=== PATIENT | female | born 1970 | race Caucasian/White ===

== ENCOUNTER 2016-09-18 23:18 | Inpatient (IN) ==
[2016-09-18] MEDS ORDERED: *HR* Ticagrelor 90 MG TABLET PO ONE (23:21)
[2016-09-18] MEDS ORDERED: Nitroglycerin 0.4 MG TAB.SUBL SL PRN (23:21)
--- NOTE | 2016-09-18 23:23 | Emergency Department Note ---
Disposition Clinical Impression: STEMI (ST elevation myocardial infarction) Qualifiers: Involved coronary artery: other inferior wall coronary artery Qualified Code(s) : I21.19 - ST elevation (STEMI) myocardial infarction involving other coronary artery of inferior wall Disposition: Admitted As Inpatient Condition: Serious Time of Disposition: 23:48 (Taking patient to woods laborer, accpted by Dr. Jones) Chest Pain HPI - General Chief Complaint: ED Chest Pain Stated Complaint: chest pain Time Seen by Provider: 09/18/16 23:18 Source: patient, EMS Mode of arrival: EMS Vital Signs Reviewed: Yes Nursing Notes Reviewed: Yes - History of Present Illness HPI Narrative: Patient is a 46-year-old female with past medical history of anxiety, GERD, hypertension, hyperlipidemia, asthma, smoking history. She presents today via EMS due to chest pain. She states that the pain is located in the center chest , descried as a radiates down her left arm and is associated with left arm tingling. She says that the pain began about an hour prior to presentation and woke her up about sleep from a nap. She denies any previous hernia History, denies previous NE, previous stents. She denies any fevers, abdominal pain. She admits to associated N/V, shortness of breath, sweating. Currently rates the pain a 9 out of 10 and states that it was "20/10 on presentation. She did not take any aspirin or nitroglycerin at home. She was given aspirin 325 mg by EMS squad. - Related Data Home Medications Medication Instructions Recorded Confirmed Albuterol Neb [Proventil Neb] 2.5 mg IH Q4HR PRN 09/16/15 06/19/16 Albuterol Sulfate [Albuterol 2 puff IH Q4HR PRN 09/16/15 06/19/16 Inhaler] Hydrochlorothiazide 25 mg PO DAILY 09/16/15 06/19/16 Lisinopril [Zestril] 20 mg PO DAILY 09/16/15 06/19/16 Esomeprazole Magnesium [Nexium] 20 mg PO BID 06/19/16 06/19/16 FLUoxetine HCl [PROzac] 20 mg PO DAILY 06/19/16 06/19/16 Guaifenesin/Dm/Pseudoephedrine 1 tab PO TID 06/19/16 06/19/16 [Capmist Dm Tablet] LORazepam [Ativan] 1 mg PO TID PRN 06/19/16 06/19/16 Metoprolol [Lopressor] 25 mg PO BID 06/19/16 06/19/16 Nicotine Patch [Nicoderm] 14 mg TD DAILY 06/19/16 06/19/16 Oxybutynin Chloride [Ditropan Xl] 5 mg PO DAILY 06/19/16 06/19/16 Pravastatin Sodium [Pravachol] 20 mg PO DAILY 06/19/16 06/19/16 Tramadol HCl [Ultram] 50 mg PO QID PRN 06/19/16 06/19/16 Trazodone HCl 100 mg PO DAILY 06/19/16 06/19/16 Allergies Allergy/AdvReac Type Severity Reaction Status Date / Time Penicillins Allergy Hives Verified 03/14/15 22:08 acetaminophen [From Vicodin] AdvReac Nausea Verified 06/19/16 12:03 hydrocodone [From Vicodin] AdvReac Nausea Verified 06/19/16 12:03 Constitutional: Denies: fever Cardiovascular: Reports: chest pain, dyspnea on exertion Respiratory: Reports: dyspnea. Denies: cough, wheezes Gastrointestinal: Reports: nausea, vomiting. Denies: abdominal pain, diarrhea, constipation Genitourinary: Denies: urgency, dysuria, frequency Musculoskeletal: Denies: back pain, neck pain Integumentary: Denies: rash, abrasion Neurological: Denies: headache, weakness Psychiatric: Denies: anxiety, depression Endocrine: Denies: fatigue, heat or cold intolerance Hematological/Lymphatic: Denies: easy bleeding Chest Pain PMH - Past Medical History Medical history: Reports: arthritis, asthma, GERD, hyperlipidemia, hypertension , migraine Surgical history: Reports: , cholecystectomy, orthopedic, other, other Psychiatric history: Reports: anxiety AIRCRAFT TIME CLERK history: Reports: no AIRCRAFT TIME CLERK history - Social History Smoking Status: Current every day smoker Alcohol use: Reports: none Drug use: Reports: none Physical Exam - General Limitations: no limitations General appearance: alert, anxious, in distress - Head Head exam: atraumatic, normocephalic, normal inspection - Eye Eye exam: Present: normal appearance, PERRL, EOMI - ENT ENT exam: normal exam, normal oropharynx, mucous membranes moist - Chest Chest inspection: Present: normal inspection, symmetric chest wall rise. Absent : tenderness - Respiratory Respiratory exam: Present: normal lung sounds bilaterally. Absent: respiratory distress, wheezes - Cardiovascular Cardiovascular exam: Present: regular rate, normal rhythm, normal heart sounds - Abdominal Exam Abdominal exam: Present: soft, Non-Tender. Absent: tenderness, distention, guarding, rebound, rigidity - Extremities Exam Extremities exam: Present: normal inspection, full ROM. Absent: tenderness, pedal edema - Back Exam Back exam: Present: normal inspection, full ROM. Absent: tenderness - Neurological Exam Neurological exam: Present: alert, oriented X3, CN II-XII intact. Absent: motor sensory deficit - Psychiatric Psychiatric exam: Present: normal affect, normal mood - Skin Skin exam: Present: warm, dry, intact, normal color Course Course Narrative: Patient was mildly hypertensive on presentation. Oxygen saturation on a percent. Heart rate in 90s. An EKG was transmitted at 23:08. STEMI alert was called at 2310 prior to patient's arrival due to concerning ST elevation in leads 2, 3, aVF and reciprocal changes in V1, V2. I talked with Dr. Jones and she recommended heparin, brilinta 180 and then will take to woods laborer. Upon arrival, the patient was distressed, and pain, flushed and sweating, complaining of not out of 10 cm chest pain. She was given aspirin 325 mg by EMS. Similar Heatherly then activated, STEMI labs, chest x-ray, EKG ordered. Patient was not given nitroglycerine due to concern of inferior NE. She was given morphine for pain control. Repeat EKG at 23:28 on 09/18/[address] elevation in leads 2, 3, aVF and reciprocal changes in leads V1, V2, V3. Patient will be taken to cathet lab. Heparin and Brilinta was started. 23:59 Trop 0.18. Patient going to woods laborer now. Vital Signs Temperature 98.8 F 09/18/16 23:21 Pulse Rate 96 09/18/16 23:21 Respiratory Rate 22 09/18/16 23:21 Blood Pressure 162/95 09/18/16 23:21 O2 Sat by Pulse Oximetry 100 09/18/16 23:21 Temperature 98.8 F 09/18/16 23:21 Pulse Rate 92 09/18/16 23:50 Respiratory Rate 19 09/19/16 00:00 Blood Pressure 163/107 09/19/16 00:00 O2 Sat by Pulse Oximetry 100 09/18/16 23:50 Oxygen Delivery Oxygen Delivery Nasal Cannula Chest Pain - MDM Narrative Medical decision making narrative: Patient was mildly hypertensive on presentation. Oxygen saturation on a percent. Heart rate in 90s. An EKG was transmitted at 23:08. STEMI alert was called at 2310 prior to patient's arrival due to concerning ST elevation in leads 2, 3, aVF and reciprocal changes in V1, V2. I talked with Dr. Jones and she recommended heparin, brilinta 180 and then will take to woods laborer. Upon arrival, the patient was distressed, and pain, flushed and sweating, complaining of not out of 10 cm chest pain. She was given aspirin 325 mg by EMS. Similar Heatherly then activated, STEMI labs, chest x-ray, EKG ordered. Patient was not given nitroglycerine due to concern of inferior NE. She was given morphine for pain control. Repeat EKG at 23:28 on 09/18/[address] elevation in leads 2, 3, aVF and reciprocal changes in leads V1, V2, V3. Patient will be taken to cathet lab. Heparin and Brilinta was started. 23:59 Trop 0.18. Patient going to woods laborer now. - Medical Records Medical records reviewed: Yes I reviewed the patient's medical records. - Lab Data Lab results reviewed: Yes I reviewed the patient's lab results. Result diagrams: 09/18/16 23:26 09/18/16 23:26 Lab Results 09/18/16 09/18/16 09/18/16 Range/Units 23:26 23:26 23:26 WBC 11.9 H (4.3-11.1) K/mcL RBC 5.20 H (3.82-4.97) M/mcL Hgb 16.7 H (11.5-15.4) g/dL Hct 47.7 H (35.3-44.9) % MCV 91.7 (83.0-100.0) fL MCH 32.1 (28.0-33.3) pg MCHC 35.0 (31.6-35.5) g/dL RDW 12.1 (11.5-14.5) % Plt Count 383 (140-400) K/mcL MPV 9.6 (9.4-12.4) fL Immature Gran % 0.8 (0-4) % Seg Neutrophils % 75.7 % Lymphocytes % 14.8 % Monocytes % 6.6 % Eosinophils % 1.7 % Basophils % 0.4 % Neutrophils # 9.0 H (1.6-8.9) K/mcL Lymphocytes # 1.8 (0.6-4.6) K/mcL Monocytes # 0.8 (0.0-1.3) K/mcL Eosinophils # 0.2 (0.0-0.6) K/mcL Basophils # 0.1 (0.0-0.2) K/mcL Nucleated RBCs/100 WBC 0.2 H (0) /100 WBC PT 13.1 H (9.4-12.1) Seconds INR 1.2 APTT 32.2 (26.0-36.0) Seconds Sodium 139 (136-145) mEq/L Potassium 3.3 L (3.5-4.5) mEq/L Chloride 105 (98-109) mEq/L Carbon Dioxide 22 (19-29) mEq/L BUN 12 (7-20) mg/dL Creatinine 0.85 (0.57-1.11) mg/dL Est GFR ( Amer) > 60 (> 60) Est GFR (Non-Af Amer) > 60 (> 60) BUN/Creatinine Ratio 14 (6-26) Glucose 125 H (70-99) mg/dL Calculated Osmolality 289 (280-300) Calcium 9.3 (8.6-10.8) mg/dL Magnesium 2.0 (1.6-2.6) mg/dL Troponin I (0-0.03) ng/mL 09/18/16 Range/Units 23:26 WBC (4.3-11.1) K/mcL RBC (3.82-4.97) M/mcL Hgb (11.5-15.4) g/dL Hct (35.3-44.9) % MCV (83.0-100.0) fL MCH (28.0-33.3) pg MCHC (31.6-35.5) g/dL RDW (11.5-14.5) % Plt Count (140-400) K/mcL MPV (9.4-12.4) fL Immature Gran % (0-4) % Seg Neutrophils % % Lymphocytes % % Monocytes % % Eosinophils % % Basophils % % Neutrophils # (1.6-8.9) K/mcL Lymphocytes # (0.6-4.6) K/mcL Monocytes # (0.0-1.3) K/mcL Eosinophils # (0.0-0.6) K/mcL Basophils # (0.0-0.2) K/mcL Nucleated RBCs/100 WBC (0) /100 WBC PT (9.4-12.1) Seconds INR APTT (26.0-36.0) Seconds Sodium (136-145) mEq/L Potassium (3.5-4.5) mEq/L Chloride (98-109) mEq/L Carbon Dioxide (19-29) mEq/L BUN (7-20) mg/dL Creatinine (0.57-1.11) mg/dL Est GFR ( Amer) (> 60) Est GFR (Non-Af Amer) (> 60) BUN/Creatinine Ratio (6-26) Glucose (70-99) mg/dL Calculated Osmolality (280-300) Calcium (8.6-10.8) mg/dL Magnesium (1.6-2.6) mg/dL Troponin I 0.18 H* (0-0.03) ng/mL - Radiology Data Radiology results reviewed: Yes I reviewed the patient's radiology results. Chest X-Ray 09/18/16 23:21 IMPRESSION: Mild perihilar opacities centrally may represent vascular congestion. A viral infection or underlying asthma cannot be excluded. D/ / Darnell Ramos MD / Darnell Ramos MD Interpreting Provider: Darnell Ramos MD - EKG Data EKG attestation: Yes I reviewed and interpreted this EKG. EKG results narrative: 09/18/2016 at 23:28. Rate 98. ME interval 149. QRS 92. QTC 412. Normal axis. ST elevation in leads 2, 3, aVF. Reciprocal changes in V1, V2, V3. Heart Score - Score History: Highly Suspicious EKG: Significant ST-Depression Age: Less than 45 Risk Factors: 1-2 risk factors Troponin: Greater than 3x normal limit HEART Score Total: 7 Critical Care Time Critical Care Time: Yes Total Critical Care Time: 35 Attestation: Critical care performed: Time is exclusive of separately billable procedures. Time includes: direct patient care, patient reassessment, coordination of patient care, interpretation of data (laboratory data, radiology data, and respiratory data), review of patient's medical records, medical consultation and documentation of patient care. Procedures included in critical care time: Procedures excluded from critical care time: S.Tobi - Mohan.Tobi Situation: Demographics, MOA Background: Presenting Complaint, Relevant PMH, Meds, & Allergies Assessment: Vital Signs, Course and respsone to treatment, Exam Concerns, Patient/Family Expectation, Pertinant Lab Results, Outstanding Labs Recommendation: Barrier(s) to disposition, Recommendation based on pending studies, treatments, or consults Margareth Report Given to: Dr. Robert Zuluaga Repor Time: 23:47 Attestation Statement - Attestation Attestation: I, Fermin Hennessy MD, personally performed a history and physical exam of the patient and discussed their management with the resident. I reviewed the resident's note and agree with the documented findings, medical decision making , and plan of care. 46-year-old female presents to the emergency department by ambulance with a complaint of awakening from sleep with severe substernal chest pain approximately one hour prior to arrival. The pain radiates to the left arm. She complains of some shortness of breath associated with the pain. Also some nausea and vomiting and mild diaphoresis. No prior history of any heart problems. She is a smoker and has a history of hypertension. 12-lead EKG transmitted her EMS prior to arrival showed acute inferior STEMI with significant ST elevation in leads 2, 3 and aVF. A STEMI alert was called prior to patient's arrival in the emergency department. Repeat EKG here in the emergency department confirms acute inferior STEMI. Examination patient is a well-developed well-nourished female in no acute distress. She is very anxious. She is alert and oriented 3. There is no cyanosis or diaphoresis. Chest is nontender to palpation. Breath sounds are clear and equal bilaterally. Heart regular rate and rhythm. Abdomen is soft and nontender with normal bowel sounds. No pedal edema. No gross focal neurological deficits. Dr. Martell discussed with the income tax auditor, Dr. Jones. Patient taken directly from the emergency department to the cardiac Head Mva Reactor Operator for interventional catheterization.
[2016-09-18] MEDS ORDERED: *HR* Heparin 5,000 UNIT/ML VIAL IVP PRN ×2 (23:24)
[2016-09-18] MEDS ORDERED: *HR* Heparin 5,000 UNIT/ML VIAL IVP ONE (23:24)
[2016-09-18] MEDS ORDERED: Heparin 25,000 UNIT/500 ML D5W 25,000 UNIT/500 ML MLS IVC SCH (23:30)
[2016-09-18 23:35] LABS: Basophils # 0.1 K/mcL (0.0-0.2); Basophils % 0.4 %; Eosinophils # 0.2 K/mcL (0.0-0.6); Eosinophils % 1.7 %; Hematocrit 47.7 % (35.3-44.9); Immature Granulocytes % 0.8 % (0-4); Lymphocytes # 1.8 K/mcL (0.6-4.6); Lymphocytes % 14.8 %; Mean Corpuscular Hemoglobin 32.1 pg (28.0-33.3); Mean Corpuscular Volume 91.7 fL (83.0-100.0); Mean Platelet Volume 9.6 fL (9.4-12.4); Monocytes # 0.8 K/mcL (0.0-1.3); Monocytes % 6.6 %; Nucleated Red Blood Cells 0.2 /100 WBC (0); Red Cell Distribution Width 12.1 % (11.5-14.5); Segmented Neutrophils % 75.7 %
[2016-09-18] MEDS ORDERED: *HR* Morphine 2 MG/ML SYRINGE IVP ONE (23:39)
[2016-09-18 23:40] LABS: INR 1.2
[2016-09-18 23:43] LABS: Activated Partial Thrombo Time 32.2 Seconds (26.0-36.0)
[2016-09-18 23:44] LABS: Hemoglobin 16.7 g/dL (11.5-15.4); Prothrombin Time 13.1 Seconds (9.4-12.1)
[2016-09-18 23:45] LABS: Platelet Count 383 K/mcL (140-400)
[2016-09-18] MEDS ORDERED: Heparin 1,000 UNITS/500 mL NS 500 ML ONE (23:46)
[2016-09-18] MEDS ORDERED: *HR* Midazolam HCl 2 MG/2 ML VIAL ONE (23:46)
[2016-09-18] MEDS ORDERED: 0.9 % Sodium Chloride 2,000 ML ONE (23:46)
[2016-09-18] MEDS ORDERED: *HR* FentaNYL (PF) 100 MCG/2 ML VIAL ONE (23:46)
[2016-09-18] MEDS ORDERED: *HR* Heparin 10,000 UNIT/10 ML VIAL ONE (23:47)
[2016-09-18] MEDS ORDERED: Nitroglycerin 1,000 MCG/10 ML VIAL IV ONE (23:47)
[2016-09-18 23:48] LABS: BUN/Creatinine Ratio 14 (6-26); Blood Urea Nitrogen 12 mg/dL (7-20); Calcium 9.3 mg/dL (8.6-10.8); Carbon Dioxide 22 mEq/L (19-29); Chloride 105 mEq/L (98-109); Glucose 125 mg/dL (70-99); Osmolality,Calculated 289 (280-300); Potassium 3.3 mEq/L (3.5-4.5); Sodium 139 mEq/L (136-145); eGFR For African Americans > 60 (> 60); eGFR For Non-African Americans > 60 (> 60)
[2016-09-19] MEDS ORDERED: Ondansetron 4 MG/2 ML VIAL ONE (00:31)
[2016-09-19] MEDS ORDERED: Nitroglycerin 0.4 MG TAB.SUBL SL PRN ×2 (00:45→14:39)
[2016-09-19] MEDS ORDERED: Ondansetron 4 MG/2 ML VIAL IVP PRN ×2 (00:45→14:39)
[2016-09-19] MEDS ORDERED: *HR* Morphine 2 MG/ML SYRINGE IVP PRN ×2 (00:45→14:39)
--- NOTE | 2016-09-19 00:55 | Cardiology History & Physical ---
Date of Encounter: 09/18/16 Time of Encounter: 23:55 Assessment and Plan (1) STEMI (ST elevation myocardial infarction) Current Visit: Yes Status: Acute Pt currently experiencing an acute inferior/posterior STEMI. Discussed with patient emergent LHC and probable PCI. Pt agreeable to proceed. Further recommendations pending cath. The assessment and plan as outlined above was discussed with the patient and/or family members who expressed understanding and agreement. All questions were answered. Qualifiers: Involved coronary artery: other inferior wall coronary artery Qualified Code(s): I21.19 - ST elevation (STEMI) myocardial infarction involving other coronary artery of inferior wall (2) Hypertension Current Visit: Yes Status: Chronic Qualifiers: Hypertension type: essential hypertension Qualified Code(s): I10 - Essential (primary) hypertension (3) Hyperlipidemia Current Visit: Yes Status: Chronic Qualifiers: Hyperlipidemia type: other hyperlipidemia Qualified Code(s): E78.4 - Other hyperlipidemia (4) Tobacco use Current Visit: Yes Status: Chronic History of Present Illness Chief complaint: chest pain HPI: Ms. Real is a 46 year old female with HTN, hyperlipidemia presents to [facility] ED with chest pain. 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 Radiated down L arm. Associated with nausea, SOB, diaphoresis. Contacted EMS. EKG by EMS demonstrated acute inferior/posterior STEMI. Brought to [facility] ED for further tx. Pt denies prior symptoms. Denies prior cardiac history, cardiac testing. Past Med Surg Social Fam HX - Past Medical History Source: patient Medical history: arthritis, asthma, GERD, hyperlipidemia, hypertension, migraine Psychiatric history: anxiety - Past Surgical History Surgical History: , cholecystectomy, orthopedic, other, other - Social History Smoking Status: Current every day smoker Smokeless Tobacco Status: No (1 PPD) Alcohol use: none Drug use: none - Family History Mother Living Status: Still Living Cause of : unspecified heart disease Medications and Allergies Albuterol Neb [Proventil Neb] 2.5 mg IH Q4HR PRN 09/16/15 [History] Albuterol Sulfate [Albuterol Inhaler] 2 puff IH Q4HR PRN 09/16/15 [History] Hydrochlorothiazide 25 mg PO DAILY 09/16/15 [History] Lisinopril [Zestril] 20 mg PO DAILY 09/16/15 [History] Esomeprazole Magnesium [Nexium] 20 mg PO BID 06/19/16 [History] FLUoxetine HCl [PROzac] 20 mg PO DAILY 06/19/16 [History] Guaifenesin/Dm/Pseudoephedrine [Capmist Dm Tablet] 1 tab PO TID 06/19/16 [ History] LORazepam [Ativan] 1 mg PO TID PRN 06/19/16 [History] Metoprolol [Lopressor] 25 mg PO BID 06/19/16 [History] Nicotine Patch [Nicoderm] 14 mg TD DAILY 06/19/16 [History] Oxybutynin Chloride [Ditropan Xl] 5 mg PO DAILY 06/19/16 [History] Pravastatin Sodium [Pravachol] 20 mg PO DAILY 06/19/16 [History] Tramadol HCl [Ultram] 50 mg PO QID PRN 06/19/16 [History] Trazodone HCl 100 mg PO DAILY 06/19/16 [History] Allergies Penicillins Allergy (Verified 03/14/15 22:08) Hives acetaminophen [From Vicodin] Adverse Reaction (Verified 06/19/16 12:03) Nausea hydrocodone [From Vicodin] Adverse Reaction (Verified 06/19/16 12:03) Nausea ROS unobtainable: other (emergency) All Systems Review: A 10-system review of systems was performed and is negative for pertinent findings except as documented above in the HPI. - Cardiovascular Cardiovascular: as per HPI - Integumentary Integumentary: rash (states rash on face "from allergy to soap") Physical Examination Vital Signs, Last 4 Hours Resp BP 09/19/16 00:00 19 163/107 General: Other (moderate distress, appears uncomfortable) HEENT: Atraumatic, Normocephaly, Mucus Membranes Moist Neck: No JVD, Normal carotid pulses Cardiac: Reg Rate and Rhythm, Normal S1 and S2, No Murmur Lungs: Normal Breath Sounds, No Wheeze, Rales, Rhonchi Neuro: Alert and responsive, No focal deficits noted Abdomen: Soft, Non-Tender Skin: Other (facial rash) Musculoskeletal: No Chest Wall Tenderness Extremities: No Clubbing, No Cyanosis, No Edema, Normal Pulses Results 09/18/16 23:26 09/18/16 23:26 - VTE Reasons for not Prescribing Prophylaxis: Not indicated-Anticoagulated or INR therapeutic
--- NOTE | 2016-09-19 01:05 | Invasive Diagnostic Lab Proc ---
Name: Milly Real Date of Study: 09/19/2016 Date: 1970 Ht: 65.0in Medical Record#: [id number] Age: 46 Wt: 174.17lb Gender: Female BSA: 1.86 Order #: [id number] BMI: 29.02 Physicians Procedure Physician: Montserrat Jones MD, [facility] Referring MD: Referring MD: Staff Name Position Time In Sites, Rosy RT (R) Monitor 12:02 AM Erica Fuller RN Nursing Assistant 12:02 AM Karen Campa RT (R) Scrub 12:02 AM Indications Indication STEMI Procedures Performed Procedure PRQ CARD REVASC NC 1 VSL L HRT ARTERY/VENTRICLE ANGIO Pre-Procedure Checklist Informed consent is complete signed and on chart. H\\T\\P is on chart. ID band is on and ID verified with patient. Patient NPO for procedure The procedure was described for the patient and questions were answered. Blood Pressure: 90/80 ECG is on chart. Rhythm: NSR Plan of Care Patient will tolerate the procedure without complications. Adequate level of comfort will be maintained. Hemodynamics will remain stable Patient will recover from procedure without complications. Respiratory function will be maintained. Cardiac rhythm will remain stable. Patient temperature will be maintained. Patient and/or family have verbalized understanding of the procedure. Patient Education Intravenous Access Time IV Size Location DC'd Fluid/Drip Rate Units RN 18g 1 1/4" Patent On Arrival Rt Antecubital 0.9NaCl 25 ml/hr Erica Fuller RN 20g 1 1/4" Patent On Arrival Rt Arm Erica Fuller RN Allergies hydrocodone Penicillins Vital Signs Time BP (mmHg) HR (bpm) O2 Sat. RR (bpm) LOC 12:11 AM / % 5 = Fully awake and oriented or at pre-proc level 12:11 AM / % 4 = Oriented but drowsy 12:07 AM 90 / 80 76 100 % 12 12:10 AM 159 / 101 73 98 % 10 12:15 AM 152 / 85 93 95 % 18 12:20 AM 142 / 94 96 95 % 16 12:25 AM 130 / 74 95 93 % 19 12:31 AM 156 / 98 97 97 % 13 12:35 AM 151 / 89 99 96 % 17 12:26 AM / % 4 = Oriented but drowsy Procedural Medications Time Medication Dose Units Method Given By 12:04 AM Oxygen 2 L/min nasal cannula Erica Fuller RN 12:06 AM Versed 2 mg Intravenous Erica Fuller RN 12:06 AM Fentanyl 50 mcg Intravenous Erica Fuller RN 12:06 AM Lidocaine 20 ml Subcutaneous Montserrat Jones MD, [facility] 12:21 AM Nitroglycerin 200 mcg Intracoronary Montserrat Jones MD, FAC 12:32 AM Nitroglycerin 200 mcg Intracoronary Montserrat Jones MD, FAC 12:32 AM Zofran 4 mg Intravenous Erica Fuller RN 12:42 AM Reopro Bolus: 9.9 ml Intravenous Erica Fuller RN ASA Classification: CLASS II- Mild systemic disease (i.e. well-controlled diabetes, hypertension, asthma, cigarette smoking) Emergent Procedure: ASA score is assumed Cr Score Preprocedure Postprocedure Activity 2- Moves 4 extremities sustained head lift Activity 2- Moves 4 extremities sustained head lift Circulation 2- SBP +/= 20 points of pre-anesthetic level Circulation 2- SBP +/= 20 points of pre-anesthetic level Consciousness 2- Awake and alert oriented x 3 Consciousness 2- Awake and alert oriented x 3 O2 Saturation 2- Able to maintain O2 satruation of 92% on room air O2 Saturation 2- Able to maintain O2 satruation of 92% on room air Respiratory 2- Able to deep breathe and cough well Respiratory 2- Able to deep breathe and cough well Total Score 10 Total Score 10 Contrast Agent: Isovue Diagnostic Contrast: 140 ml Total Contrast: 140 ml Fluoro Dose: 1343 mGy Activated Clotting Time Time Seconds to Clot 12:16 AM 230 12:33 AM 400 12:36 AM 181 Procedure Log Time Note Enter By 12:02 AM Pt arrived to botany laboratory assistant 2 at 00:02 tsites 12:02 AM Rosy Hicks RT (R) Position: Monitor Time in: 00:02 tsites 12:02 AM Erica Fuller RN Position: Nursing Assistant Time in: 00:02 tsites 12:02 AM Karen Campa RT (R) Position: Scrub Time in: 00:02 tsites 12:03 AM Physician arrived 00:03 tsites 12:04 AM Time: 00:04 Oxygen on at 2 L/min per nasal cannula by Erica Fuller RN tsites 12:05 AM Vitals capture started with the following parameters, Patient=Adult, Interval=5 min, Initial Erccmeio=750 mmHg, Deflation Rate=5 mmHg, Cuff placed on Left Arm 12:06 AM Time: 00:06 Versed 2 mg Intravenous Given by Erica Fuller RN tsites 12:06 AM Time: 00:06 Fentanyl 50 mcg Intravenous Given by Erica Fuller RN tsites 12:07 AM HR=76 bpm, NIBP=90/80 mmhg, WdE3=965 %, Resp=12 B/min 12:09 AM NIBP STAT measurement started. 12:10 AM Patient charges- Angio tray pack, Navilyst 3mm J, Pulse Oximetry and ACIST tubing and transducer tsites 12:10 AM Case Delayed No tsites 12:10 AM HR=73 bpm, NCRN=880/101 mmhg, SpO2=98 %, Resp=10 B/min 12:10 AM Hair removed from procedure site in emergency department using clippers. Bilateral groin prepped with Chloraprep by Sites, Rosy RT (R), safety strap applied then patient was draped. Skin intact. tsites 12:10 AM Meet and greet completed tsites 12:10 AM Sign in performed according to hospital policy. tsites 12:10 AM Procedure start 00:10 tsites 12:11 AM Time: 00:11 Patient comfortable and pain free: Yes tsites 12:11 AM Time: 00:11LOC: 5 = Fully awake and oriented or at pre-proc level tsites 12:11 AM Clinical Presentation: STEMI or equivalent tsites 12:11 AM Time out performed according to hospital policy tsites 12:11 AM Time: 00:11 20 ml lidocaine to Subcutaneous Given by montserrat jones md tsites 12:11 AM Access obtained by percutaneous puncture. 6Fr 10cm Terumo [place] sheath placed in right Femoral artery. [id number] tsites 12:12 AM 5Fr FL 4 catheter inserted over the wire [facility] tsites 12:12 AM 0.035 145cm Navilyst 3mmJ wire [id number] tsites 12:12 AM Recorded Pressure: Ao, HR=84, Condition=Condition 1 (Aorta) Ao 85/-26/36 12:12 AM LCA angiography performed in multiple views. tsites 12:12 AM wire reinserted catheter removed tsites 12:12 AM Recorded ECG: HR=88 Condition=Condition 1 12:12 AM 6Fr JR 4 Runway guide catheter was used to cannulate the PCI vessel successfully. reused? No tsites 12:12 AM Inflation device was opened. tsites 12:13 AM act drawn tsites 12:14 AM RCA angiography performed in multiple views. tsites 12:14 AM Recorded Pressure: Ao, HR=86, Condition=Condition 1 (Aorta) Ao 120/74/94 12:15 AM HR=93 bpm, MNVU=429/85 mmhg, SpO2=95 %, Resp=18 B/min 12:16 AM At 00:16 the ACT was 230 seconds. tsites 12:19 AM PCI Status Emergency tsites 12:19 AM PCI Indication: Immediate PCI for STEMI tsites 12:19 AM PCI lesion in Mid RCA. Pre Stenosis: 99 Pre JUWAN Flow: 3 tsites 12:19 AM PCI lesion in Mid RCA. tsites 12:20 AM 3.0mm x 32mm Synergy drug-eluting stent across target lesion- successful Lot #[id number] tsites 12:20 AM Stent deployed @ 16 robby for 30 seconds tsites 12:20 AM .014 Prowater 182cm guide wire across target lesion- successful. reused? No tsites 12:20 AM HR=96 bpm, XFFH=570/94 mmhg, SpO2=95.0 %, Resp=16 B/min 12:21 AM Time: 00:21 Nitroglycerin 200 mcg Intracoronary Given by Montserrat Jones MD, [facility] tsites 12:24 AM Stent delivery system removed intact. tsites 12:24 AM 3.5 mm x 15mm NC Emerge balloon across target lesion- successful. reused? No tsites 12:25 AM HR=95 bpm, PCKI=605/74 mmhg, SpO2=93 %, Resp=19 B/min 12:26 AM Time: 00:11LOC: 4 = Oriented but drowsy tsites 12:26 AM Time: 00:11 Patient comfortable and pain free: Yes tsites 12:28 AM Balloon inflated @ 20 robby for 16 seconds tsites 12:29 AM Balloon inflated @ 20 robby for 15 seconds tsites 12:29 AM Balloon inflated @ 20 robby for 15 seconds tsites 12:30 AM Balloon inflated @ 20 robby for 10 seconds tsites 12:31 AM HR=97 bpm, WIOU=210/98 mmhg, SpO2=97.0 %, Resp=13 B/min 12:32 AM Right Coronary, Right Posterior Descending Arteries with Right Posterolateral and Acute Marginal branches with 99 % stenosis. If graft is supplying this area, 0 % stenosis tsites 12:32 AM Time: 00:32 Nitroglycerin 200 mcg Intracoronary Given by Montserrat Jones MD, [facility] tsites 12:32 AM Time: 00:32 Zofran 4 mg Intravenous Given by Erica Fuller RN tsites 12:32 AM ACT greater [id number] tsites 12:33 AM At 00:33 the ACT was 400 seconds. tsites 12:33 AM Guide wire removed intact. tsites 12:33 AM wire reinserted catheter removed tsites 12:34 AM act drawn tsites 12:35 AM Pressure channel 1 zeroed. 12:35 AM 5Fr Pigtail catheter inserted over the wire [facility] tsites 12:35 AM Catheter selectively placed in left ventricle tsites 12:35 AM Bolus angiogram of left Ventricle complete: 8 ml/sec for a total of 24 mls tsites 12:35 AM Recorded Pressure: LV, HR=93, Condition=Condition 1 (Left Ventricle) LV 107/20/22 12:35 AM Recorded Pressure: LV, Ao, HR=93, Condition=Condition 1 (Left Ventricle) LV 117/34/47, (Aorta) Ao 109/81/95 12:35 AM HR=99 bpm, MNUL=548/89 mmhg, SpO2=96.0 %, Resp=17 B/min 12:35 AM Catheter removed tsites 12:35 AM Wire removed tsites 12:36 AM Bolus angiogram of right Femoral complete: 2 ml/sec for a total of 4 mls tsites 12:36 AM At 00:36 the ACT was 181 seconds. tsites 12:41 AM Coronary Dominance: right tsites 12:41 AM Time: 00:26 Patient comfortable and pain free: Yes tsites 12:41 AM Time: 00:26LOC: 4 = Oriented but drowsy tsites 12:42 AM Time: 00:42 Reopro Bolus: 9.9 ml Intravenous Given by Erica Fuller RN Potts pump tsites 12:43 AM Procedure completed at 00:43 tsites 12:43 AM Sign out completed: Radiation Dose 1343 mGy Fluoro Time: 8.4 Isovue 370 - 500ml contrast 140 ml given by Montserrat Jones MD, [facility]. Complications: NoneCardiac Rehab Consult needed: YesConfirmed administered medications: Yes tsites 12:43 AM Isovue 370 - 500ml,1 Bottle(s) used. tsites 12:43 AM Sheath left in place to be pulled on floor/holding areaV+Pad tsites 12:43 AM Post ECG NSR tsites 12:43 AM Post Blood Pressure 150/94 tsites 12:44 AM 00:43 Post Pulses Bilateral DP \\T\\ PT 2+ tsites 12:44 AM Information taught Cardiac Cath and PCI tsites 12:44 AM Education needs Procedure, Plan of Care, and Responsibilities of Patient in Care tsites 12:44 AM Learning barriers :None tsites 12:44 AM Education Methods Verbal tsites 12:44 AM Education evaluation Able to repeat information tsites 12:44 AM Site status No bleeding/hematoma - Rt Groin as reported by Karen Campa RT (R) at 00:44 tsites 12:44 AM Plavix, Effient or Brilinta given Yes in the ER tsites 12:46 AM Lesion found in Proximal LAD. Pre Stenosis: 20 Pre JUWAN Flow: tsites 12:46 AM Proximal Left Anterior Descending Coronary Artery with 20% stenosis. If graft is supplying this territory, 0 % stenosis. tsites 12:46 AM Lesion found in Proximal Circumflex. Pre Stenosis: 20 Pre JUWAN Flow: tsites 12:46 AM Circumflex, Obtuse Marginal, Left Posterior Descending, and Left Posterolateral Coronary Arteries with 20 % stenosis. If graft is supplying this area, 0 % stenosis tsites 12:58 AM Report given to mali RN Pt taken to ICU Room #9. 00:57 tsites 12:58 AM Delay to floor No tsites 12:58 AM Patient out of room: 00:58 tsites 12:58 AM no family at this time except a minor daughter who remianed in the er tsites Complications Complication None Hemodynamics Pressures Site Systolic/A Wave Diastolic/V Wave Mean AO 85 -26 36 AO 120 74 94 LV 107 20 22 LV 117 34 47 AO 109 81 95 Post Procedure Information Blood Pressure: 150/94 mmHg Rhythm: NSR Post procedural instructions were given Closure Device Time Device Success/Fail 09/19/2016 12:45:00 AM Manual Compression Site Checks Time Location Status Staff Sheath In? Note 12:44 AM Rt Groin No bleeding/hematoma Karen Campa RT (R) Pulses Time Site Pre-Procedure Post-Procedure Note Bilateral DP \\T\\ PT 2+ 12:43:00 AM Bilateral DP \\T\\ PT 2+ Updated by Rosy Hicks RT (R) on 09/19/2016 12:59:15 AM Rosy Hicks RT electronically signed on 09/19/2016 1:01:02 AM with status of Final
--- NOTE | 2016-09-19 01:12 | Invasive Diagnostic Lab ---
Name: Milly Real Date of Study: 09/19/2016 Date: 1970 Ht: 165.0 cm /65.0 in Medical Record#: [id number] Age: 46 Wt: 79. kg / 174.17 lb Account/Order#: [id number] Gender: Female BSA: 1.86 Order #: [id number] Fluoro Dose: 1343 mGy BMI: 29.02 Procedure Physician: Montserrat Jnoes MD, [facility] Referring MD: Referring MD: Procedures Performed: PCI of Acute NH LEFT HEART CATH Indications: STEMI Impressions: There is severe one vessel coronary artery disease. The left ventricle is normal and has normal contractility EF 55% Patient had successful PTCA/Drug-Eluting Stent placement in the mid RCA. Recommendations: DAPT for one year minimum uninterrupted. Optimal medical therapy of patient's disease. Aggressive risk factor modification. Patient being referred for cardiac rehab. History/Risk Factors: gerd Hypertension Dyslipidemia Current/Recent Smoker Procedure Access obtained in the right Femoral artery by percutaneous puncture Patient had successful PTCA/Drug-Eluting Stent placement in the mid RCA. Complications: None Contrast: Isovue 140ml Closure Device: Manual Compression Hemodynamics: Pressures Site Systolic/ A Wave Diastolic/ V Wave End Diastolic/ Mean HR AO 85 -26 36 84 AO 120 74 94 86 LV 107 20 22 93 LV 117 34 47 89 AO 109 81 95 95 LV Ventriculography Ejection Method: LV Gram Ejection Fraction: 55% Wall Motion: CHANG Anterobasal Normal Anterolateral Normal Apical: Normal Inferoapical Moderate Hypokinesis Inferobasal Moderate Hypokinesis Coronary Dominance: right Lesion Findings/Interventions * Left Main Coronary Artery The LMCA is angiographically free of disease. * Left Anterior Descending There is a 20% stenosis in the Proximal LAD. * Circumflex There is a 20% stenosis in the Proximal Circumflex. * Right Coronary Artery There is a 32 mm long, 99% stenosis in the Mid RCA. The lesion has a JUWAN flow of 3 and has thrombus present. An intervention was performed on the Mid RCA with a final stenosis of 0%. There were no lesion complications. The final JUWAN flow was 3. Interventional Device(s) Vessel Segment Type Name Diameter (mm) Length (mm) Mid RCA Drug Eluting Stent Synergy 3 32 Mid RCA Balloon NC Emerge 3.5 15 Updated by Rosy Sites, RT (R) on 09/19/2016 1:01:07 AM Montserrat Jones MD, FACC electronically signed on 09/19/2016 1:06:46 AM with status of Final
[2016-09-19] MEDS ORDERED: *HR* Atropine Sulfate 1 MG/10 ML SYRINGE ONE (02:50)
[2016-09-19 03:08] LABS: Basophils # 0.1 K/mcL (0.0-0.2); Basophils % 0.5 %; Eosinophils # 0.1 K/mcL (0.0-0.6); Eosinophils % 1.2 %; Hematocrit 44.4 % (35.3-44.9); Hemoglobin 15.3 g/dL (11.5-15.4); Immature Granulocytes % 0.5 % (0-4); Immature Platelets 3.8 % (1.1-6.1); Lymphocytes # 2.2 K/mcL (0.6-4.6); Lymphocytes % 21.3 %; Mean Corpuscular HGB Conc 34.5 g/dL (31.6-35.5); Mean Corpuscular Hemoglobin 31.7 pg (28.0-33.3); Mean Corpuscular Volume 92.1 fL (83.0-100.0); Mean Platelet Volume 9.6 fL (9.4-12.4); Monocytes # 0.5 K/mcL (0.0-1.3); Monocytes % 4.6 %; Neutrophils # 7.4 K/mcL (1.6-8.9); Platelet Count 368 K/mcL (140-400); Red Blood Count 4.82 M/mcL (3.82-4.97); Segmented Neutrophils % 71.9 %
[2016-09-19 03:20] LABS: Hemoglobin A1C 5.7 %
[2016-09-19 03:22] LABS: BUN/Creatinine Ratio 13 (6-26); Blood Urea Nitrogen 9 mg/dL (7-20); Carbon Dioxide 21 mEq/L (19-29); Chloride 108 mEq/L (98-109); Chol/HDL Ratio 9.1 (0-4.9); Cholesterol 210 mg/dL (< 200); Glucose 100 mg/dL (70-99); HDL Cholesterol 23 mg/dL (40-59); LDL Cholesterol,Calculated 135 mg/dL (0-99); Osmolality,Calculated 285 (280-300); Potassium 3.6 mEq/L (3.5-4.5); Sodium 138 mEq/L (136-145); Triglycerides 258 mg/dL (< 150); eGFR For African Americans > 60 (> 60); eGFR For Non-African Americans > 60 (> 60)
[2016-09-19 03:43] LABS: Thyroid Stimulating Hormone 1.602 mcIU/mL (0.350-4.840)
--- NOTE | 2016-09-19 08:23 | Event Note ---
Date of Encounter: 09/19/16 Time of Encounter: 08:20 - Cardiology Event Note Selected Entries 09/19/16 06:00 09/19/16 07:50 Temperature 98.9 F Pulse Rate 83 Respiratory Rate 20 Blood Pressure 133/83 O2 Sat by Pulse Oximetry 97 Oxygen Flow Rate (LPM) 2 Laboratory Tests 09/18/16 09/19/16 09/19/16 23:26 03:00 03:00 WBC 10.3 Hgb 15.3 Hct 44.4 Plt Count 368 Potassium 3.6 Creatinine 0.69 Est GFR (Non-Af Amer) > 60 Hemoglobin A1c Magnesium 2.0 Troponin I 0.18 H* Triglycerides 258 H Cholesterol 210 H LDL Cholesterol, Calc 135 H TSH 1.602 09/19/16 09/19/16 03:00 03:00 WBC Hgb Hct Plt Count Potassium Creatinine Est GFR (Non-Af Amer) Hemoglobin A1c 5.7 H Magnesium Troponin I 2.41 H* Triglycerides Cholesterol LDL Cholesterol, Calc TSH Impressions Chest X-Ray 09/18/16 23:21 IMPRESSION: Mild perihilar opacities centrally may represent vascular congestion. A viral infection or underlying asthma cannot be excluded. D/ / Darnell Ramos MD / Darnell Ramos MD Interpreting Provider: Darnell Ramos MD Active Medications Acetaminophen (Tylenol) 500 mg PO Q6HR PRN PRN Reason: Mild Pain Stop: 03/21/17 00:46 Aspirin (Aspirin) 81 mg PO DAILY [facility] Stop: 03/21/17 09:01 Atorvastatin Calcium (Lipitor) 80 mg PO HS [facility] Stop: 03/21/17 21:01 Clopidogrel Bisulfate (Plavix) 75 mg PO DAILY [facility] Stop: 03/21/17 09:01 Lisinopril (Zestril) 5 mg PO DAILY [facility] Stop: 03/21/17 09:01 Metoprolol Tartrate (Lopressor) 25 mg PO BID [facility] Stop: 03/21/17 09:01 Morphine Sulfate (Morphine Sulfate) 4 mg IVP Q3H PRN PRN Reason: Severe Pain (7-10) Stop: 03/21/17 00:46 Nitroglycerin (Nitroglycerin) 0.4 mg SL Q5MIN PRN PRN Reason: Chest Pain Stop: 03/21/17 00:46 Ondansetron HCl (Zofran) 4 mg IVP Q8HR PRN PRN Reason: Nausea And Vomiting Stop: 03/21/17 00:46 Last Admin: 09/19/16 02:59 Dose: 4 mg Patient currently CP free. R groin site D&I with mild with mild ecchymosis, no bleeding, R DP & PT pulses 2+ palp, warm to touch. Anxious, reports uses ativan at home. Reports also on nicotine patch at home. I spent 5 minutes discussing importance of smoking cessation. Echo pending. Has Cardiac Rehab C/S. Possible transfer to floor today. All questions answered.
[2016-09-19] MEDS ORDERED: *HR* LORazepam 1 MG TABLET PO PRN (08:58)
[2016-09-19] MEDS ORDERED: Nicotine 21 MG PATCH.TD24 TD SCH (09:00)
[2016-09-19] MEDS ORDERED: Aspirin 81 MG TAB.CHEW PO SCH (09:00)
--- NOTE | 2016-09-19 09:09 | Electrocardiograph Report ---
[address] [place], [place] [address] Test Date: 2016-09-18 Pat Name: Milly Real Department: 103 Room: [facility] Gender: F Kettle Operator: : 1970 Requested By: Baldo Martell Order Number: [id number] Reading MD: Flor Silvestre Measurements Intervals [place] Rate: 98 P: 66 [place]: 149 QRS: 42 QRSD: 92 T: 68 QT: 357 QTc: 412 Interpretive Statements SINUS RHYTHM CONSIDER INFERIOR-POSTERIOR STEMI ARTIFACT LIMITS ANALYSIS Electronically Signed On 09-19-2016 9:07:42 EDT by Flor Silvestre
--- NOTE | 2016-09-19 09:09 | Electrocardiograph Report ---
[address] [place] [address] Test Date: 2016-09-19 Pat Name: Milly Real Department: 109 Room: [facility] Gender: F Batch Attendant: : 1970 Requested By: Montserrat Jones Order Number: [id number] Reading MD: Flor Silvestre Measurements Intervals [place] Rate: 80 P: 64 [place]: 159 QRS: 9 QRSD: 92 T: 16 QT: 390 QTc: 427 Interpretive Statements SINUS RHYTHM INFERIOR MYOCARDIAL INFARCTION, OF INDETERMINATE AGE Electronically Signed On 09-19-2016 9:08:17 EDT by Flor Silvestre
--- NOTE | 2016-09-19 12:26 | ECHO - Doppler Report ---
Echocardiogram Name: Milly Real Date of Study: 09/19/2016 Date: 1970 Ht: 65.0 in Medical Record#: [id number] Age: 46 Wt: 175.0 lb Gender: Female BSA: 1.87 Order #: [id number] Location: [facility] OP Room #: ICU09 Reading Physician: Flor Silvestre DO Public Health Training Assistant: Celestino Villatoro RN Ordering Physician: Montserrat Jones MD, [facility] Primary Physician: Drew Graham DO Indications: STEMI Impressions: LVEF 65%. Normal LV wall motion. Normal left ventricular size and systolic function. There is evidence of mild diastolic dysfunction of the left ventricle. Normal right ventricular size and function. No significant valvular dysfunction. No pulmonary hypertension. Left Ventricular Wall Motion: Rest Echo Findings All wall segments showed normal motion. Findings: Study Quality * Technically adequate exam. ECG Findings * Normal sinus rhythm. Left Ventricle * Normal LV chamber size, wall thickness and function. * Mild left ventricular diastolic dysfunction. * LVEF 65%. Aortic Valve * No aortic regurgitation. * Trileaflet aortic valve. * Normal aortic valve structure. * No aortic stenosis. Mitral Valve * Normal mitral valve structure. * No mitral stenosis. * Trace mitral regurgitation. Tricuspid Valve * Tricuspid valve not well visualized. * Trace tricuspid regurgitation. * Estimated RA pressure is 3 mmHg. * No pulmonary hypertension. Pulmonic Valve * Pulmonic valve is not well visualized. * No pulmonic stenosis. * No pulmonic regurgitation. Pulmonary Artery * Pulmonary artery not well visualized. Right Ventricle * Normal right ventricular structure and function. Left Atrium * Normal left atrial size. Right Atrium * Normal right atrial size. Interatrial Septum * No evidence of PFO by color Doppler. IVC * The IVC is not dilated. History Hypertension Hypercholesteremia History of Smoking Years 33 Packs 1.5 Family History of CAD History of CAD/PTCA Myocardial Infarction Measurements: BP: 127/ 92 2D Normal Values RVIDd: 3.30 cm <2.7 cm IVSd: 1.10 cm 0.6 - 1.0 cm LVIDd: 4.00 cm 3.7 - 5.6 cm LVPWd: 1.10 cm 0.6 - 1.1 cm LVIDs: 2.50 cm 1.5 - 3.6 cm LA: 3.00 cm 2.0 - 4.0cm %FS: 37.50 cm >25 % LVOT Diam: 2.00 cm LA volume: 58 Mitral Valve Peak E:1.02 m/sec Peak A:1.01 m/sec E/A Ratio:1 Peak E' Lat Jc:7.6 cm/s Peak E' Med Jc:8.29 cm/s E/E' Lat Ratio:13.9 E/E' Med Ratio:12.8 Tricuspid Valve TV Regurg Peak Grad: 20.00mmHg TV Regurg Peak Jc: 2.21m/sec Updated by Flor Silvestre on 09/19/2016 12:20:07 PM electronically signed on 09/19/2016 12:20:44 PM with status of Final Wall Motion Mace: 1=Normal, 2=Hypokinesis, 3=Akinesis, 4=Dyskinesis, 5=Aneurysmal, 6=Hyperkinetic, X=Not Visualized (Blank)=Missing
[2016-09-19] MEDS ORDERED: *HR* Heparin 5,000 UNIT/ML VIAL SQ SCH (18:00)
[2016-09-19] MEDS: Gabapentin 300 MG CAPSULE PO SCH ×2 (18:05→20:51)
[2016-09-19] MEDS: traZODone 50 MG TABLET PO SCH (18:06)
[2016-09-19] MEDS: *HR* Heparin 5,000 UNIT/ML VIAL SQ SCH (18:10)
[2016-09-19] MEDS: *HR* LORazepam 1 MG TABLET PO PRN (20:50)
[2016-09-20] MEDS: *HR* Heparin 5,000 UNIT/ML VIAL SQ SCH (05:42)
[2016-09-20] MEDS: Gabapentin 300 MG CAPSULE PO SCH (08:56)
[2016-09-20] MEDS: traZODone 50 MG TABLET PO SCH (08:57)
[2016-09-20] MEDS ORDERED: Aspirin 81 MG TAB.CHEW PO SCH (09:00)
[2016-09-20] MEDS ORDERED: Nicotine 21 MG PATCH.TD24 TD SCH (09:00)
[2016-09-20] MEDS ORDERED: FLUoxetine 20 MG CAPSULE PO SCH (09:00)
--- NOTE | 2016-09-20 10:24 | Discharge Summary ---
Date of Encounter: 09/20/16 Time of Encounter: 08:30 - Discharge Diagnosis (1) STEMI (ST elevation myocardial infarction) Priority: Primary Status: Acute Comments: Present with inferior STEMI with peak troponin 2.41. Status post heart catheterization with PTCA/drug-eluting stent to mid RCA 99% stenosis. Qualifiers: Involved coronary artery: right coronary artery Qualified Code(s): I21.11 - ST elevation (STEMI) myocardial infarction involving right coronary artery (2) Tobacco use Priority: Secondary Status: Chronic - Discharge Medications Prescriptions: Nitroglycerin 0.4 mg SL Q5MIN PRN #30 tab.subl PRN Reason: Chest Pain Atorvastatin [Lipitor] 80 mg PO HS #30 tablet Clopidogrel [Plavix] 75 mg PO DAILY #30 tablet Lisinopril [Zestril] 2.5 mg PO DAILY #30 tablet Nicotine Patch [Nicoderm] 21 mg TD DAILY #30 patch.td24 Home Medications: Albuterol Neb [Proventil Neb] 2.5 mg IH Q4HR PRN 09/16/15 [History] Albuterol Sulfate [Albuterol Inhaler] 2 puff IH Q4HR PRN 09/16/15 [History] FLUoxetine HCl [Prozac] 20 mg PO DAILY 06/19/16 [History] LORazepam [Ativan] 1 mg PO BID PRN 06/19/16 [History] Metoprolol [Lopressor] 25 mg PO BID 06/19/16 [History] Oxybutynin Chloride [Ditropan Xl] 5 mg PO DAILY 06/19/16 [History] Trazodone HCl 100 mg PO HS 06/19/16 [History] Gabapentin [Neurontin] 300 mg PO TID 09/19/16 [History] Aspirin 81 mg PO DAILY tab.chew 09/20/16 [Rx] Atorvastatin [Lipitor] 80 mg PO HS #30 tablet 09/20/16 [Rx] Clopidogrel [Plavix] 75 mg PO DAILY #30 tablet 09/20/16 [Rx] Lisinopril [Zestril] 2.5 mg PO DAILY #30 tablet 09/20/16 [Rx] Nicotine Patch [Nicoderm] 21 mg TD DAILY #30 patch.td24 09/20/16 [Rx] Nitroglycerin 0.4 mg SL Q5MIN PRN #30 tab.subl 09/20/16 [Rx] Allergies/Adverse Reactions: Allergies Penicillins Allergy (Verified 03/14/15 22:08) Hives acetaminophen [From Vicodin] Adverse Reaction (Verified 06/19/16 12:03) Nausea hydrocodone [From Vicodin] Adverse Reaction (Verified 06/19/16 12:03) Nausea Date of admission: 09/19/16 03:30 Primary care physician: Drew Agarwal Consults: Cardiac Rehab Discharging clinician: Asa Mosqueda Anticipated date of discharge: 09/20/16 - Patient Status Disposition: Home, Self-Care Condition: Fair Functional capacity at discharge: independent ambulation Overall status at discharge: patient is progressing back to baseline - Discharge Instructions Follow Up With: Drew Agarwal [Primary Care Provider] - Additional Instructions: RISK FACTORS: STOP SMOKING: If you smoke, STOP. Smoking or tobacco use significantly increases your risk of heart disease because nicotine causes the arteries to narrow or constrict. It also causes fats to stick to the artery. Your chances of having a heart attack are greatly increased if you continue to smoke. For more information, call the education line for smoking cessation [id number] EAT A LOW FAT/CHOLESTEROL/SODIUM DIET: This diet may help reduce your chances of having a heart attack. LIFTING: Avoid lifting anything more than 10 pounds for 5-7 days Prior to straining, laughing, sneezing and/or coughing, apply manual pressure directly over insertion site. ACTIVITY: You may walk or climb stairs as tolerated You can resume sexual activity as tolerated In general, you are encouraged to engage in a minimum of 30 minutes or more of moderate intensity physical activity, such as brisk walking, daily or at least 3 -4 times weekly BATHING Do not submerge the site into water (bath tub, hot tub, swimming pool) for 1 week. This can be a source for infection into the blood stream. You may shower after 24 hours SITE CARE: After 24 hours, you may remove the dressing and leave the site open to air. Keep the site clean and dry. Clean gently and pat dry. You can expect bruising and tenderness that gradually resolve within a week or two. Return to work as instructed per your physician Resume driving as instructed per physician Keep all scheduled follow up appointments Resume medications as instructed IMPORTANT: If prescribed a Platelet Aggregation Inhibitor such as, Plavix, Brilinta or Effient: Duration of therapy is minimum one year These medications are often used in combination with Aspirin in prevention of future heart attacks Never discontinue unless consult with your [employer] STROKE (CVA) Risk factors for a stroke are: Age, cigarette smoking, diabetes, excessive alcohol consumption, family history, high blood pressure, overweight, physical inactivity, prior stroke, heart attack, diagnosis of carotid artery stenosis or other artery disease. Warning signs: Sudden numbness or weakness of the face, arm or leg; especially on one side of the body, sudden confusion, trouble speaking or understanding, sudden trouble seeing in one or both eyes, sudden trouble walking, dizziness, loss of balance or coordination, sudden severe headache with no cause. Call 911 or go to the Emergency Room. CONGESTIVE HEART FAILURE: If you have been diagnosed with Congestive Heart Failure (CHF) and your symptoms return, make an appointment with your physician Weigh yourself daily. Notify your physician if you have a weight gain of two or more pounds in one day or five or more pounds in one week. If you experience any difficulty breathing, please call 911 BLEEDING: Although the risk of bleeding is minimal, it can happen. If you have any bleeding from the site, apply firm pressure above the puncture site for 10-15 minutes. If the bleeding does not stop, continue manual pressure and call 911 Contact your physician if: You develop a fever greater than 101 degrees Fahrenheit Your site becomes reddened or has any drainage You have an increase in pain or burning at the site or if a large knot forms at the site. If you experience chest pain, shortness of breath, dizziness, or extreme tiredness, stop the activity and rest. Please notify your physicians office if you experience any of these symptoms and they are not relieved by rest please call 911! - Diet and Activity Activity: return to work once cleared by your PCP/specialist Diet: low fat, low cholesterol - Hospital Course Hospital course: Ms. Real is a 46 year old female presented with inferior STEMI peak troponin 2.41. Status post left heart catheterization with drug-eluting stent to mid RCA 99% stenosis. Has remaining non-obstructive proximal LAD 20% and proximal circumflex 20% lesions. Echo showed EF preserved at 65%, no significant valvular dysfunction, no segmental wall motion abnormalities. Patient has remained chest pain-free since intervention. Vital signs and labs in stable. Patient had one 11 beat run of nonsustained VT on telemetry otherwise no ventricular arrhythmias noted. Patient probably for discharge home today in stable condition. Post-cath education provided. Smoking cessation reinforced. Patient follow-up with cardiology in 5-7 days. Discussed and reviewed with Dr. Drew Jones. Time spent discussing smoking cessation with patient: more than 10 minutes - Time Spent with Patient Total time spent providing and/or coordinating discharge services: Less than 30 minutes Physical Examination Vital Signs, Last 4 Hours Temp Pulse Resp BP Pulse Ox 09/20/16 08:30 99.1 F 83 12 107/78 94 L 09/20/16 07:50 99.1 F 09/20/16 07:00 69 12 91/59 94 L General: Conversant, No Apparent Distress HEENT: Atraumatic, Normocephaly, Mucus Membranes Moist Cardiac: Reg Rate and Rhythm, Normal S1 and S2, No Murmur Lungs: Normal Breath Sounds, No Wheeze, Rales, Rhonchi Neuro: Alert and responsive, No focal deficits noted Skin: No rashes noted on visualized skin, Other (Right groin site is dry and intact, mild ecchymosis, no bleeding, no hematoma, right dorsalis pedis and posterior tibial pulses 2+ palpable) Extremities: No Edema - VTE Reasons for not Prescribing Prophylaxis: Not indicated-Anticoagulated or INR therapeutic
[2016-09-20 12:14] VITALS: BP 104/67
[2016-09-20] MEDS: *HR* LORazepam 1 MG TABLET PO PRN (13:34)
[2016-09-20] MEDS ORDERED: traZODone 50 MG TABLET PO SCH (21:00)
== END 2016-09-20 13:40 | disposition home or self-care (01) | DRG 174 ==
LOC: EMEROO 23:18 → ICNU 23:18
PROVIDERS: ADMIT Internal Medicine Interventional Cardiology; ATTEND Internal Medicine Interventional Cardiology